=== PATIENT | female | born 1965 | race Hispanic/Latino ===

== ENCOUNTER → 2019-08-03 | Outpatient (CLI) | payer OTHER | END | disposition home or self-care (01) | LOC: RAH 08:44 | PROVIDERS: ATTEND Family Medicine | DX: K76.0 Fatty (change of) liver, not elsewhere classified (principal); R18.8 Other ascites; R94.5 Abnormal results of liver function studies; R16.0 Hepatomegaly, not elsewhere classified | CPT/HCPCS: 76700 ==